=== PATIENT | female | born 1950 | race Two or more races ===

== ENCOUNTER 2016-06-08 12:56 | Day surgery (SDC) | payer OTHER ==
[~2016-06-08] VITALS: Ht 152.4 cm; Wt 77.0 kg
[2016-06-08 14:02] VITALS: Ht 152.4 cm; Wt 77.0 kg
[2016-06-08] MEDS ORDERED: ALBUTEROL INH (14:10)
[2016-06-08] MEDS ORDERED: CELEBREX PO (14:10)
[2016-06-08] MEDS ORDERED: ADVAIR INH (14:10)
[2016-06-08] MEDS ORDERED: TRAMADOL PO (14:10)
[2016-06-08 15:18] VITALS: BP 145/72; PULSE 81; RESP 18
[2016-06-08] MEDS ORDERED: PROPOFOL 20 ML ONE (15:28)
[2016-06-08 16:19] VITALS: BP 154/74; PULSE 89; RESP 23
--- NOTE | 2016-06-09 07:08 | GILP ---
DATE OF PROCEDURE: 06/08/2016 PROCEDURE: Colonoscopy to cecum. BRIEF HISTORY AND INDICATIONS: Patient is being evaluated for history of colonic polyps approximate ly 7 years prior. PREMEDICATION: Monitored anesthesia care by anesthesiologist. SURGEON: Michael Salguero MD. INSTRUMENT USED: Olympus colonoscope. PREPARATION: Adequate. FINDINGS: Rectal exam: No evidence of perirectal disease, no masses. Colonic Mucosa: The colonic mucosa is remarkable for diverticulosis in the left side of the colon. There are otherwise no significant abnormalities. In particular, no evidence of residual polyps. The ileocecal valve and appendiceal orifice were clearly identified and appeared unremarkable. Inst rument was withdrawn. On withdrawal of the instrument, no additional abnormalities are noted with e xception of moderate to large internal hemorrhoids. IMPRESSION: 1. Diverticulosis, left side of the colon, moderate. 2. Moderate to large internal hemorrhoids. 3. He has personal history of colon polyps. PLAN: The patient will be continued on present regimen. High fiber diet is recommended. Annual He moccult stool testing is recommended, and surveillance colonoscopy in 5 years is recommended. Dictated By: MICHAEL SALGUERO MS/CECILE Conf#: [id number] DID#: [id number]
== END 2016-06-08 16:04 | disposition home or self-care (01) ==
LOC: GIL 12:56
PROVIDERS: ATTEND Internal Medicine Gastroenterology
DX: Z12.11 Encounter for screening for malignant neoplasm of colon (principal); K57.90 Diverticulosis of intestine, part unspecified, without perforation or abscess without bleeding; K64.8 Other hemorrhoids; J45.909 Unspecified asthma, uncomplicated; E66.9 Obesity, unspecified; Z68.33 Body mass index [BMI] 33.0-33.9, adult